=== PATIENT | female | born 1965 | race African-American/Black ===

== ENCOUNTER 2020-03-31 16:05 | Inpatient (IN) | payer OTHER ==
[~2020-03-31] VITALS: Ht 149.9 cm; Wt 45.7 kg
[2020-03-31 16:15] VITALS: BP 121/90
[2020-03-31 18:22] LABS: ABSOLUTE NEUTROPHILS 4.5 thou/uL (1.4-8.2); BASOPHILS 0.9 % (0.0-2.0); EOSINOPHILS 0.1 % (0.0-3.0); HEMATOCRIT 35.8 % (37.0-47.0); HEMOGLOBIN 12.1 gm/dL (12.0-15.0); LYMPHOCYTES 25.8 % (24.0-44.0); MCH 34.8 pg (26.0-34.0); MCHC 33.7 g/dL (28.0-37.0); MCV 103.2 fL (80.0-100.0); PLATELET COUNT 363 thou/uL (150-400); POLYS 56.2 % (36.0-66.0); RBC 3.47 mil/uL (4.20-5.00); RDW 15.6 % (10.5-14.5)
[2020-03-31 18:33] LABS: CALCIUM 9.1 mg/dL (8.5-10.1); CREATININE 1.1 mg/dL (0.6-1.0)
[2020-03-31 18:36] LABS: POTASSIUM 2.9 mmol/L (3.5-5.1)
[2020-03-31 18:39] LABS: ALBUMIN 2.5 g/dL (3.4-5.0); DIRECT BILIRUBIN 0.8 mg/dL (<0.1-0.2); TOTAL BILIRUBIN 2.4 mg/dL (0.2-1.0); TOTAL PROTEIN 8.2 g/dL (6.4-8.2)
[2020-03-31 21:28] VITALS: BP 92/62
[2020-03-31 21:28] LABS: URINE BILIRUBIN 2+ (Negative); URINE BLOOD NEGATIVE (Negative); URINE CLARITY CLEAR; URINE COLOR YELLOW; URINE GLUCOSE-RANDOM* NEGATIVE (Negative); URINE KETONES NEGATIVE (Negative); URINE LEUKOCYTES-REFLEX NEGATIVE (Negative); URINE PROTEIN (DIPSTICK) 1+ (Negative); URINE SPECIFIC GRAVITY <= 1.005 (1.005-1.035)
[2020-03-31 21:35] LABS: URINE NITRITE-REFLEX POSITIVE (Negative)
[2020-03-31 21:51] LABS: SQUAMOUS 4-10 Moderate /LPF (0-3)
[2020-03-31 21:52] LABS: CASTS None Seen /LPF (None Seen); CRYSTALS None Seen /LPF (None Seen); URINE RBC None Seen /HPF (0-2); URINE WBC-REFLEX 0-5 Rare /HPF (0-5)
[2020-03-31 22:08] VITALS: BP 104/49
--- NOTE | 2020-04-01 01:09 | NUR ---
ADMISSION COMPLETED. PT IS ALERT AND ORIENTED. WALKS WITH STEADY GAIT. REPORTS MILD WEAKNESS. PT IS ON ROOM AIR AND REMAINS STABLE.SHE IS AFEBRILE.PT TOOK CLEAR LIQUIDS BEFORE MIDNIGHT AND WAS ABLE TO KEEP EVERYTHING DOWN. ANTIEMETIC AND NORCO ALSO GIVEN BEFORE MIDNIGHT. PT IS NPO AFTER MIDNOC.REPLACING POTASSIUM AT THIS TIME.DENIES ANY GI OR DISCOMFORT. CALL LIGHT WITHIN REACH.
[2020-04-01] MEDS ORDERED: CONSTULOSE10 GM/15 M PO (01:56)
[2020-04-01] MEDS ORDERED: TIZANIDINE HCL4 M2 PO (02:02)
[2020-04-01] MEDS ORDERED: FUROSEMIDE 40 M40 MG PO (02:58)
[2020-04-01] MEDS ORDERED: FOLIC ACID1 MG PO (02:59)
[2020-04-01] MEDS ORDERED: MIDODRINE HCL 55 M1 PO (03:00)
[2020-04-01] MEDS ORDERED: SPIRONOLACTONE50 MG PO (03:01)
[2020-04-01] MEDS ORDERED: PHENERGAN 25 MG25 MG PO (03:03)
[2020-04-01] MEDS ORDERED: XIFAXAN550 MG PO (03:11)
[2020-04-01] MEDS ORDERED: FLONASE 0.05%50 MCG NARES (03:13)
[2020-04-01] MEDS ORDERED: BENADRYL ALLERG25 MG PO (03:13)
[2020-04-01] MEDS ORDERED: NIVA-PLUS TABL1 EACH PO (03:14)
[2020-04-01 05:45] LABS: HEMATOCRIT 33.8 % (37.0-47.0); MCH 34.4 pg (26.0-34.0); MCHC 32.7 g/dL (28.0-37.0); MCV 105.2 fL (80.0-100.0); RBC 3.21 mil/uL (4.20-5.00); RDW 16.5 % (10.5-14.5); WBC 9.8 thou/uL (4.0-11.0)
[2020-04-01 05:57] LABS: INR 1.4
[2020-04-01 06:00] LABS: CALCIUM 8.5 mg/dL (8.5-10.1); CREATININE 0.8 mg/dL (0.6-1.0)
[2020-04-01 06:03] LABS: POTASSIUM 5.3 mmol/L (3.5-5.1)
[2020-04-01 09:01] VITALS: BP 95/66
--- NOTE | 2020-04-01 10:26 | NUR ---
ASSESSMENT: CM REVIEWED CHART AND SPOKE WITH PT. PT IS ALERT AND ORIENTED X4. PT REPORTS LIVING IN AN APT WITH HER DAUGHTER AND GRANDCHILDREN. PT REPORTS HAVING ABOUT 4 STEPS TO ENTER THE APT AND NO STEPS ONCE INSIDE. PT STATES SHE IS FULLY INDEPENDENT WITH ADLS AND AMBULATION. PT DENIES HAVING HH IN THE PAST OR BEING TO A POST ACUTE CARE STAY. CM DISCUSSED ROLE AND PT DOES NOT ANTICIPATE HAVING ANY NEEDS. PT HAS PARACENTESIS AND IS TO HAVE POTASSIUM RE-CHECKED AND IS A POSSIBLE DISCHARGE LATER THIS AFTERNOON. CM WILL CONTINUE TO FOLLOW TO ASSIST NEEDED.
[2020-04-01 11:31] LABS: CALCIUM 8.5 mg/dL (8.5-10.1); CREATININE 1.2 mg/dL (0.6-1.0)
[2020-04-01 11:32] LABS: POTASSIUM 3.5 mmol/L (3.5-5.1)
--- NOTE | 2020-04-01 11:50 | NUR ---
Assumed care of pt at 0700. Pt a&ox4. Pain controlled with prn pain meds. Pt had paracentesis this am. 4.4 L out. No nausea. Tolerated diet well. Likely d/c later today. Call light within reach. Will continue to monitor.
[2020-04-01 16:38] VITALS: BP 95/66
[2020-04-01] MEDS ORDERED: ZOFRAN ODT4 MG DISSOLVE (17:46)
[2020-04-01] MEDS ORDERED: TYLENOL EXTRA500 MG PO (17:46)
== END 2020-04-01 17:54 | disposition home or self-care (01) | DRG 442 ==
LOC: ER 16:05 → EROBS 21:05 → 4S 21:57
PROVIDERS: Emergency Medicine; Hospitalist; Nurse Practitioner Family; ADMIT Hospitalist; ATTEND Hospitalist
PROC: 0W9G3ZZ Drainage of Peritoneal Cavity, Percutaneous Approach (ICD-10-PCS; principal; 2020-04-01)
DX: K72.90 Hepatic failure, unspecified without coma (principal); R18.8 Other ascites; N39.0 Urinary tract infection, site not specified; E11.9 Type 2 diabetes mellitus without complications; I10 Essential (primary) hypertension; E87.6 Hypokalemia; K74.60 Unspecified cirrhosis of liver; F10.10 Alcohol abuse, uncomplicated; Z79.899 Other long term (current) drug therapy; Z88.1 Allergy status to other antibiotic agents; Z88.0 Allergy status to penicillin; Z88.8 Allergy status to other drugs, medicaments and biological substances; Z71.41 Alcohol abuse counseling and surveillance of alcoholic
CPT/HCPCS: 10195